=== PATIENT | female | born 1990 | race Caucasian/White ===

== ENCOUNTER 2025-01-16 10:11 | Outpatient (CLI) | payer BC, SELFPAY ==
--- NOTE | ~2025-01-16 | MR_ITS ---
MRI of the cervical spine Clinical History: Radiculopathy Technique: Axial T2-weighted and gradient images, and sagittal T1-weighted, T2-weighted, and STIR ange ges were acquired. Findings: No fracture or subluxation seen in the cervical spine. There is reversal normal cervical lo rdosis. No suspicious bone marrow signal abnormality seen. At C2-C3, there is no disc bulge or herniation. No spinal canal stenosis, cord compression, or neural foraminal narrowing. At C3-C4, there is disc osteophyte complex. There is mild canal stenosis without justyn cord compressi on. There is left neural foraminal narrowing. Questionable minimal right neural foraminal narrowing. At C4-C5, there is disc osteophyte complex. There is mild canal stenosis and mild ventral cord flatte shelia/compression. Neural foramina are probably intact. At C5-C6, there is disc osteophyte complex, specially the left paracentral to foraminal region, with mild to moderate canal stenosis and flattening of the ventral cord on the left side. There is left ne ural foraminal narrowing. Right neural foramen preserved. At C6-C7, there is disc osteophyte complex with moderate canal stenosis and mild ventral cord flatten ing. There is bilateral neural foraminal narrowing, severe. No abnormal signal seen in the spinal cord. Paravertebral soft tissues are unremarkable. Impression: Moderate to advanced degenerative change at C4-C5, C5-C6, C6-C7, with prominent disc osteophyte compl exes at these levels, with canal stenosis and cord compression at these levels. Please see details ab ove. Multilevel neural foraminal narrowing, as detailed above. Reversal normal cervical lordosis. Reviewed, dictated and finalized at [facility]. Impression: Moderate to advanced degenerative change at C4-C5, C5-C6, C6-C7, with prominent disc osteophyte complexes at these levels, with canal stenosis and cord compre ssion at these levels. Please see details above. Multilevel neural foraminal narrowing, as detailed above. Reversal normal cervical lordosis.
== END 2025-01-16 10:12 | disposition home or self-care (01) ==
PROVIDERS: Visit Provider Chiropractor
DX: M50.30 Other cervical disc degeneration, unspecified cervical region (principal)
CPT/HCPCS: 72141